=== PATIENT | male | born 1975 | race Caucasian/White ===

== ENCOUNTER → 2017-02-06 | Outpatient (REF) | LOC: ZLAB.WCH 18:17 | DX: Z01.89 Encounter for other specified special examinations (principal) ==

== ENCOUNTER 2020-01-22 09:19 | Emergency (ER) | payer BC ==
[~2020-01-22] VITALS: Ht 180.3 cm; Wt 90.9 kg
[2020-01-22 09:30] VITALS: TEMP 97.8
[2020-01-22] MEDS ORDERED: AMOXICILLIN 8751 TAB PO (12:17)
[2020-01-22] MEDS ORDERED: PERCOCET 325 MG1 TA2 PO (12:21)
[2020-01-22 12:33] VITALS: BP 134/63; PULSE 84
== END 2020-01-22 12:24 | disposition home or self-care (01) ==
LOC: COL.ER 09:19
DX: S02.42XA Fracture of alveolus of maxilla, initial encounter for closed fracture (principal); S01.511A Laceration without foreign body of lip, initial encounter; W22.8XXA Striking against or struck by other objects, initial encounter; Y92.009 Unspecified place in unspecified non-institutional (private) residence as the place of occurrence of the external cause